=== PATIENT | female | born 1950 | race Caucasian/White ===

== ENCOUNTER 2024-01-21 11:49 | Emergency (ER) | payer MEDICARE, SELFPAY ==
[2024-01-21 12:37] VITALS: BP 144/66; PULSE 68; RESP 18; TEMP 36.7; O2SAT 99
--- NOTE | 2024-01-21 12:44 | ED.URI ---
HPI - URI/Sore Throat General Chief Complaint: Upper Respiratory Infection Stated Complaint: Body Ache Time Seen by Provider: 01/21/24 12:44 Source: patient and RN notes reviewed Mode of arrival: ambulatory Limitations: no limitations History of Present Illness HPI Narrative: 73-year-old female presented for complaint of malaise, headache, body aches, sinus pressure/congestion, cough, fever/chills. Onset 4 days. States yesterday she slept most of the day. Endorses sister with similar symptoms. Denies sob, wheezing, n/v/d. Not taking anything for symptoms MD elicited complaint: cough Related Data Home Medications Medication Instructions Recorded Confirmed anastrozole 1 mg tablet 1 mg PO DAILY 12/11/23 01/21/24 calcium carb,[id number] 1 tablet PO DAILY 12/11/23 01/21/24 [Citracal-D3 Plus [employer]] cholecalciferol (vitamin D3) 125 125 mcg PO DAILY 12/11/23 01/21/24 mcg (5,000 unit) capsule garlic 1,000 mg capsule 1,000 mg PO DAILY 12/11/23 01/21/24 louis root extract 50 mg tablet 50 mg PO DAILY 12/11/23 01/21/24 levocetirizine 5 mg tablet 5 mg PO DAILY 12/11/23 01/21/24 red yeast rice 600 mg capsule 600 mg PO DAILY 12/11/23 01/21/24 turmeric 1 pill PO DAILY 12/11/23 01/21/24 Allergies Allergy/AdvReac Type Severity Reaction Status Date / Time ciprofloxacin [From Cipro] AdvReac Mild Rash Verified 01/21/24 12:30 Penicillins AdvReac Mild Rash Verified 01/21/24 12:30 Sulfa (Sulfonamide AdvReac Mild Rash Verified 01/21/24 12:30 Antibiotics) Review of Systems Review of Systems: CONSTITUTIONAL: Endorses malaise, denies chills, sweats, fever EYES: Denies visual changes, redness, or discharge ENT: Reports rhinorrhea, congestion CARDIOVASCULAR: Denies chest pain, palpitations, edema RESPIRATORY: Reports cough, post nasal drainage. Denies dyspnea GASTROINTESTINAL: Denies abdominal pain, nausea, vomiting, diarrhea SKIN: Denies rash or itching MUSCULOSKELETAL: Endorses myalgia PMFSH Past Medical History Medical History (Updated 01/21/24 @ 12:58 by Janine Bishop, HARRY) Acquired hallux valgus of left foot Arthritis of foot, left, degenerative Breast cancer History of ankle fracture 2014 PENNY 2016 2016 Surgical History Surgical History (Updated 12/12/23 @ 11:52 by Karina Hicks CMA) H/O lumpectomy 2022 Dr. Mittal History of back surgery 2018 Dr. French History of bunionectomy right foot 1994 History of hernia surgery 1982 History of partial hysterectomy 1995 Family History Family History Unknown Hypertension Heart disease Lung disease Arthritis High cholesterol Skin cancer Dementia Social History Social History Social History: caffeine use Smoking status: Never smoker Alcohol intake: current Drinks per week: 4 Occupation/Education: retired Gender identity (if verbalized by the patient): Female Exam Narrative: GENERAL: Mildly Ill-appearing, nontoxic no acute distress. EYES: conjunctivae clear ENT: Mucous membranes moist. TM pearly recinos with dull light reflex bilaterally; no tragal tenderness. Oropharynx erythematous without lesions or exudate, no drooling, no hoarseness, no trismus, uvula midline. NECK: Supple. No lymphadenopathy CHEST: Clear to auscultation, breath sounds equal. No wheezing, rhonchi, rales, or stridor. No respiratory distress, speaks in full sentences. HEART: Regular rate and rhythm. No murmur heard. SKIN: Warm, dry, no rash. NEURO: Alert and oriented x3. PSYCH: Normal mood and affect Course Course Emergency Course: Patient is aware of diagnosis, understands and agrees to treatment plan. Anticipatory guidance given. Patient agrees to follow-up as directed and is aware of reasons to seek care at the emergency department. Portions of this record may have been created with voice recognition software Le
[2024-01-21 12:57] LABS: EDINFLUASCREEN Negative; EDINFLUBSCREEN Negative
== END 2024-01-21 12:58 | disposition home or self-care (01) ==
PROVIDERS: Emergency Provider Nurse Practitioner Family; PCP Family Medicine
DX: U07.1 COVID-19 (principal); M19.072 Primary osteoarthritis, left ankle and foot; Z85.3 Personal history of malignant neoplasm of breast
CPT/HCPCS: 87426; 87804; 99213; G0463